=== PATIENT | male | born 1965 | race Caucasian/White ===

== ENCOUNTER → 2023-12-10 12:08 | Outpatient (REF) | payer OTHER, SELFPAY | LOC: PAVMRI 12:08 | PROVIDERS: ATTENDING PHYSICIAN Specialist; FAMILY PHYSICIAN Family Medicine | DX: M54.16 Radiculopathy, lumbar region (principal); M51.361 Other intervertebral disc degeneration, lumbar region with lower extremity pain only | CPT/HCPCS: 72148 ==